=== PATIENT | male | born 1990 | race Two or more races ===

== ENCOUNTER → 2022-07-17 | Emergency (ER) | payer BC, OTHER ==
[~2022-07-17] VITALS: Ht 175.3 cm; Wt 77.1 kg
[~2022-07-17] MED LIST: HYDR453.3 TP; NO REPORTABLE MEDS; PSYL0.525 PO
--- NOTE | 2022-07-17 11:30 | NUR ---
PAtient AOx4 able to express his concerns. Patient states he has been experiencing rectal bleed and rectal discomfort. Discussed plan of care, patient verbalized agreement. All safety recautions taken.
--- NOTE | 2022-07-17 11:48 | NUR ---
Patient discharged to home in stable condition. Written and verbal after care instructions given. Patient verbalizes understanding of instruction.
[2022-07-17 11:49] VITALS: BP 130/64
--- NOTE | 2022-07-17 11:50 | NUR ---
unable to depart the patient from [facility]
== END | disposition home or self-care (01) ==
LOC: ER 12:04
DX: K64.8 Other hemorrhoids (principal); F41.9 Anxiety disorder, unspecified; Z90.89 Acquired absence of other organs